=== PATIENT | female | born 1985 | race Caucasian/White ===

== ENCOUNTER 2016-11-13 18:52 | Emergency (ER) | payer OTHER ==
[2016-11-13 21:34] LABS: HEMATOCRIT 30.4 % (34.0-47.0); MEAN CELL VOLUME 75.8 fl (81.0-99.0); MEAN CORPUSCULAR HEMOGLOBIN 24.5 pg (27.0-31.0); MEAN CORPUSCULAR HGB CONC 32.4 g/dL (33.0-37.0); RED CELL DISTRIBUTION WIDTH 15.2 % (11.5-14.5); WHITE BLOOD COUNT 8.9 K/uL (4.8-10.8)
[2016-11-13 21:46] LABS: ALB/GLOB RATIO 0.8 (1.0-2.1); ALKALINE PHOSPHATASE 102 U/L (38-126); ALT/SGPT 18 U/L (9-52); AST/SGOT 16 U/L (14-36); BILIRUBIN,TOTAL 0.2 mg/dl (0.2-1.3); BLOOD UREA NITROGEN 8 mg/dl (7-17); CALCIUM 9.4 mg/dL (8.4-10.2); CARBON DIOXIDE 21 mmol/L (22-30); CHLORIDE 105 mmol/L (98-107); GFR AFRICAN-AMERICAN > 60; GLUCOSE,RANDOM 100 mg/dL (65-105); POTASSIUM 3.7 MMOL/L (3.6-5.0); SODIUM 136 mmol/l (132-148); TOTAL PROTEIN 6.8 G/DL (6.3-8.2)
--- NOTE | 2016-11-13 22:26 | OBHP ---
Datetime: 11/13/2016 20:25 IP Adm Impression: Term, intrauterine IP Chief Complaint Other: chest pain,headache IP Admit Plan: Observation/Evaluation Admit Comment, IP Provider: 31 yo , f, at 38.4 weeks GA with STELLA: 11/23/16 presents c/o subst ernal chest pain started last night while siting at home, sudden, sharp, intermittent 5 times since l ast night, lasting 30-40 seconds, not radiated, not aggravating or alleviating symptoms. chest pain a ssociated with headache today in the morning. Chest pain has subsided spontaneously after 2 pm and de nies headache at this moment. she also reports pelvic pressure, but not uterine Ctx. She denies LOF, VB, dysuria, photophobia, weakness, dizziness, lightheadedness, SOB, cough, leg sweeling. Patient rep orts + FM. Last Us last week and patient reports possible EFW: 6 lbs,10 Oz and she has been having pr enatal care with Dr briceño with schedule c section for 11/16/16. Patinent denies hx/o chest pain and he adache before during this . she has been measuring blood pressure for the last 2 weeks 135-1 46 /108. blood pressure today in [facility] 124/79 POBhx/o: C section x 1 at 35 weeks. preclampsia last . TAB x 4 by D _C PMHx: none. Allergies: none Meds: Aspirin( last dose 1 month ago). vit. PSurghx: C section x 1 PShx: No ETOH,rect drugs, cig Assessment/Plan: 31 yo , f, at 38.4 weeks GA. Hx/o preclampsia last pregnacy. chest pain r esolved. headache resolved -observation - CBC, CMP, LDH, UA -continous monitoring. Beth canela PGY1 [facility] ADDENDUM: pt seen _ examined by me with dr. canela. agree with assessment and plan. pt d/w dr jaime addendum: u/a pending Pelvic Type - PN: Adequate Extremities - PN: Normal Abdomen - PN: Normal Back - PN: Normal Breast - PN: Not Done Lungs - PN: Normal Heart - PN: Normal Thyroid - PN: Normal Neurologic - PN: Normal HEENT - PN: Normal General - PN: Normal FHR - Baseline A Provider: [id number] Comments, ACOG Physical Exam: US bedside: Vertex cbc, ldh, cmp nl EGA AdmitDate IP: 38.4 Vital Signs Provider: Reviewed; Within Normal Limits IP Chief Complaint: Other NICHD Variability Prov Fetus A: Moderate 6-25bpm NICHD Accel Fetus A IP Provider: [id number] FHR Category Provider Fetus A: Category I NICHD Decel Fetus A IP Provider: None Genitourinary Exam: Normal DTRs - PN: Normal
[2016-11-13 22:37] LABS: RBC URINE 2 /hpf (0-3); URINE BACTERIA OCC (<OCC); URINE BILIRUBIN NEGATIVE (NEGATIVE); URINE BLOOD NEGATIVE (NEGATIVE); URINE COLOR YELLOW (YELLOW); URINE GLUCOSE (UA) >=500 mg/dL (Normal); URINE KETONE NEGATIVE (NEGATIVE); URINE LEUKOCYTE ESTERASE NEG Leu/uL (Negative); URINE PROTEIN NEGATIVE (NEGATIVE); URINE UROBILINOGEN 0.2-1.0 mg/dL (0.2-1.0); WBC URINE 2 /hpf (0-5)
--- NOTE | 2016-11-16 13:22 | OBPPN ---
Datetime: 11/16/2016 13:21 PP Pain Prov: Within normal limits PP Nausea Prov: Denies PP Flatus Prov: Yes PP Breasts Prov: Normal PP Heart Prov: Normal PP Lungs Prov: Normal PP Abdomen/Uterus Prov: Normal PP Lochia Prov: Not Done PP Vulva/Perineum Prov: Not Done PP CVA Tenderness Prov: Normal PP Extremities Prov: Normal PP C/S Incision Prov: Normal PP Progress Prov: Normal PP Impression Prov: Normal progression PP Plan Prov: Discharge PP Progress Note Prov: Patient doing well pain well controlled patient reports minimal lochia voidin g and passing flatus without difficulty Vital signs stable afebrile Uterus firm below the umbilicus Incision clean dry and intact Extremities no Homans day #2 Patient would like to go home Patient sent home with Motrin and Percocet and Colace Patient advised to avoid heavy lifting and intercourse Patient to follow up with Dr. Styles in 1 week Vital Signs Provider PP: Reviewed
--- NOTE | 2016-11-16 13:24 | OBDCSUM ---
Datetime: 11/13/2016 23:17 Discharge Instructions, Provider: Routine instructions given Discharge Diagnosis, Provider: Term Delivered Contraception discussed, Prov: Yes Disch Activity Restrictions: No sexual activity; Nothing in vagina - [place], tampons, douche Discharge Comment, Provider: Doing well Contraception after Delivery: Undecided
== END 2016-11-14 11:30 | disposition home or self-care (01) ==
LOC: H.EROB2 18:52
DX: O26.93 Pregnancy related conditions, unspecified, third trimester (principal); Z3A.35 35 weeks gestation of pregnancy; R07.9 Chest pain, unspecified; R51 Headache

== ENCOUNTER 2016-11-14 10:47 | Inpatient (IN) | payer OTHER ==
[2016-11-14 11:12] VITALS: BMI 33.5
[2016-11-14] MEDS ORDERED: ceFAZolin 2 GM in Sodium Chloride 0.9% 100 ML IVPB ONE (11:39)
[2016-11-14] MEDS ORDERED: Oxytocin 30 units/LR 500ML 30 U/500 ML BAG IV ONE (11:39)
[2016-11-14] MEDS ORDERED: Lactated Ringer's 1,000 ML IV SCH ×2 (11:45→17:19)
[2016-11-14 11:57] LABS: BASO # 0.1 K/uL (0.0-0.2); BASO % 0.8 % (0.0-2.0); EOS % 0.5 % (0.0-4.0); HEMATOCRIT 31.9 % (34.0-47.0); LYMPH # 1.5 K/uL (1.0-4.3); LYMPH % 21.9 % (20.0-40.0); MEAN CELL VOLUME 75.5 fl (81.0-99.0); MEAN CORPUSCULAR HGB CONC 33.1 g/dL (33.0-37.0); MEAN PLATELET VOLUME 8.1 fl (7.2-11.7); MONO # 0.4 K/uL (0.0-0.8); MONO % 5.9 % (0.0-10.0); NEUT # 4.9 K/uL (1.8-7.0); NEUT % 70.9 % (50.0-75.0); RED CELL DISTRIBUTION WIDTH 15.2 % (11.5-14.5); WHITE BLOOD COUNT 6.9 K/uL (4.8-10.8)
[2016-11-14] MEDS ORDERED: Morphine 1 mg/ml preservative-free Inj(Duramorph) ONE (12:25)
[2016-11-14] MEDS ORDERED: Phenylephrine 10 mg/ml Inj ONE (12:25)
[2016-11-14] MEDS ORDERED: Naloxone 0.4 mg/ml Inj (Adult) IVP PRN ×2 (13:32→17:19)
[2016-11-14] MEDS ORDERED: DiphenhydrAMINE 50 mg/ml Inj IVP PRN ×2 (13:32→17:19)
[2016-11-14] MEDS ORDERED: Oxycodone/Acetaminophen 5/325 mg Tab PO PRN ×3 (13:43→17:19)
--- NOTE | 2016-11-14 18:40 | OP ---
PROCEDURE DATE: 11/14/2016 PREOPERATIVE DIAGNOSES: Intrauterine at 38 weeks, 5 days, history of previous section, in labor, declined trial of labor. POSTOPERATIVE DIAGNOSES: Intrauterine at 38 weeks, 5 days, history of previous section, in labor, declined trial of labor. OPERATION PERFORMED: Repeat section, low flap transverse incision. SURGEON: Azul Clark MD. CONTINUOUS IMPROVEMENT ENGINEER: Dr. Ordonez. ESTIMATED BLOOD LOSS: 800 mL. Victoria catheter put out approximately 200 mL of clear urine. The patient received 1500 mL of D5LR intraoperatively. ANESTHESIA: Spinal administered by . OPERATIVE FINDINGS: Baby girl, vertex presentation, Apgars 9 and 9, weighing 3070 grams. Normal uterus, tubes, and ovaries were identified. COMMENTS: Dr. Ordonez was the elementary assistant teacher in the procedure. He was instrumental in the care of the patient. He helped create exposure, helpful in obtaining hemostasis and closure of the patient. The procedure would not have been possible without his assistance. PROCEDURE: After informed consent was obtained, the patient was taken to the operating room where spinal anesthesia was noted to be adequate. The patient was placed in a leftward tilt. The patient was prepped and draped in the usual sterile fashion. A Pfannenstiel skin incision was then made with a scalpel and carried down to the underlying layer of fascia. The fascia was nicked in the midline. The fascial incision was then extended laterally with the curved Paris scissors. Superior aspect of the fascial incision was then grasped with Jason clamps, elevated up, and the rectus muscles were dissected off using both sharp and blunt dissection. Attention was then turned to the inferior aspect of the fascial incision which in a similar fashion was grasped with Jason clamps, elevated up, and the rectus muscles were dissected off using both sharp and blunt dissection. The muscles were then in the midline. The peritoneum was identified and entered sharply with the Metzenbaum scissors. The peritoneal incision was then extended superiorly and inferiorly with good visualization of the bladder. The bladder blade was inserted. The vesicouterine and peritoneum was identified, grasped with pickups and entered sharply with the Metzenbaum scissors. The incision was then extended laterally and the bladder flap was created digitally. The uterine incision was made in a low transverse fashion with the scalpel. The uterine incision was then extended laterally with the bandage scissors. The 's head was then delivered atraumatically. The nose and mouth were suctioned with DeLee suction trap. The cord was clamped and cut. The was handed off to waiting pediatricians. The placenta was removed manually. The uterus was exteriorized and cleared of all clots and debris. The uterine incision was repaired with 0 Vicryl in a running locked fashion. The second layer of the same suture was used to obtain excellent hemostasis. The abdomen was then copiously irrigated. Irrigant was removed with a suction device. Hemostasis was noted. The uterus was returned to the abdomen. The gutters were cleared of all clots and debris. The uterine incision was reexamined. Hemostasis was noted. Attention was then turned to the peritoneum. It was closed with 2-0 Vicryl in a running fashion. The muscle was reapproximated with 0 Vicryl in an interrupted fashion. The fascia was closed with 0 Vicryl in a running fashion and the skin was closed with 4-0 on a Rashi needle. All sponge, lap, needle, and instrument counts were correct x 2. The patient was taken to recovery room in awake and stable condition. Joslyn Clark MD cc: [id number] TT: 11/14/2016 18:40:00 guy YU
--- NOTE | 2016-11-14 21:37 | OBHP ---
Datetime: 11/14/2016 21:32 IP Adm Impression: Term, intrauterine ; Active labor IP Admit Plan: Admit to unit Admit Comment, IP Provider: Patient presents to labor and delivery at 38 weeks 5 days complaining of uterine contractions of moderate intensity patient has history of previous delivery. Babar adrian was seen by PMD in the office today and referred to labor and delivery for further evaluation. Sofia hanna denies any vaginal bleeding she reports uterine contractions of moderate intensity no leakage of fluid. Past medical history none Past surgical history previous section No known drug allergies Social history denies alcohol tobacco use Medications takes vitamins Review of systems patient denies headache chest pain shortness of breath palpitations nausea vomit ing reports abdominal pain moderate intensity no vaginal bleedingor fluid patient denies cold intoler ances reproducibility a musculoskeletal or neurological complaints Vital signs stable afebrile. Physical exam see notes Assessment and plan intrauterine at 38 weeks 5 days previous section active lab or Patient declines trial of labor Informed consent obtained for repeat section discussed risks benefits and alternatives to the procedure patient agrees to plan of care Routine labs external monitor IV fluid hydration Admit for postoperative care Pelvic Type - PN: Adequate Extremities - PN: Normal Abdomen - PN: Normal Back - PN: Normal Breast - PN: Not Done Lungs - PN: Normal Heart - PN: Normal Thyroid - PN: Normal Neurologic - PN: Normal HEENT - PN: Normal General - PN: Normal Weight - Estimated: 7 Presentation-Admit: Vertex FHR - Baseline A Provider: 145 Gestation - Est Wks by US: 38.0 Pool Provider: Negative EGA AdmitDate IP: 38.5 Vital Signs Provider: Reviewed IP Chief Complaint: Uterine contractions; Maternal discomfort NICHD Variability Prov Fetus A: Moderate 6-25bpm NICHD Accel Fetus A IP Provider: [id number] FHR Category Provider Fetus A: Category I NICHD Decel Fetus A IP Provider: None Dilatation, Provider: 3 Effacement, Provider: 90 Station, Provider: -1 Genitourinary Exam: Normal DTRs - PN: Normal
--- NOTE | 2016-11-15 06:36 | OBPPN ---
Datetime: 11/15/2016 06:33 PP Pain Prov: Within normal limits PP Nausea Prov: Denies PP Flatus Prov: Yes PP Breasts Prov: Normal PP Heart Prov: Normal PP Lungs Prov: Normal PP Abdomen/Uterus Prov: Not Done PP Lochia Prov: Not Done PP Vulva/Perineum Prov: Not Done PP CVA Tenderness Prov: Normal PP Extremities Prov: Normal PP C/S Incision Prov: Normal PP Impression Prov: Normal progression PP Plan Prov: Continue present management PP Progress Note Prov: Patient doing well pain well controlled. She reports some nausea no vomiting minimal lochia Vital signs stable afebrile Uterus firm below the umbilicus Dressing clean dry intact Extremities no Homans Postoperative day #1 Encourage ambulation, discontinue Victoria catheter, discontinue IV fluids Pain management as needed Monitor CBC Vital Signs Provider PP: Reviewed
[2016-11-15 07:07] LABS: HEMATOCRIT 24.9 % (34.0-47.0); MEAN CELL VOLUME 76.3 fl (81.0-99.0); MEAN CORPUSCULAR HEMOGLOBIN 25.1 pg (27.0-31.0); MEAN CORPUSCULAR HGB CONC 32.9 g/dL (33.0-37.0); RED CELL DISTRIBUTION WIDTH 15.1 % (11.5-14.5); WHITE BLOOD COUNT 7.3 K/uL (4.8-10.8)
[2016-11-15] MEDS: Oxycodone/Acetaminophen 5/325 mg Tab PO PRN ×2 (09:12→13:31)
[2016-11-16 13:31] VITALS: BP 120/75; PULSE 89; RESP 20; TEMP 97.9
== END 2016-11-16 15:15 | disposition home or self-care (01) | DRG 766 ==
LOC: H.EROB2 10:47 → H.L&D 11:27 → H.OB/GYN 17:14
PROVIDERS: ADMIT Obstetrics & Gynecology Gynecology; ATTEND Obstetrics & Gynecology Gynecology
PROC: 4A1HXCZ Monitoring of Products of Conception, Cardiac Rate, External Approach (ICD-10-PCS; principal; 2016-11-14)
PROC: 10D00Z1 Extraction of Products of Conception, Low, Open Approach (ICD-10-PCS; 2016-11-14)
DX: O34.211 Maternal care for low transverse scar from previous cesarean delivery (principal); N85.8 Other specified noninflammatory disorders of uterus; Z3A.38 38 weeks gestation of pregnancy; Z37.0 Single live birth

== ENCOUNTER 2016-11-14 11:26 | Emergency (ER) | payer OTHER ==
[2016-11-14 11:12] VITALS: BMI 33.5
== END 2016-11-14 11:27 | disposition home or self-care (01) ==
LOC: H.ER 11:26
DX: O34.211 Maternal care for low transverse scar from previous cesarean delivery (principal); N85.8 Other specified noninflammatory disorders of uterus; Z3A.38 38 weeks gestation of pregnancy